=== PATIENT | female | born 1990 | race Caucasian/White ===

== ENCOUNTER 2020-10-17 07:54 | Emergency (ER) | payer MEDICAID, SELFPAY ==
[2020-10-17 08:06] VITALS: BP 118/81; PULSE 59; RESP 17; TEMP 36.1; O2SAT 100; BMI 24.9
--- NOTE | 2020-10-17 08:14 | W.ED.EYEPROB ---
HPI - Eye Problem General: Chief complaint: Eye Problems Stated complaint: PINK EYE (LEFT) COMPLICATIONS Time Seen by Provider: 10/17/20 08:07 Source: patient Mode of arrival: ambulatory Limitations: no limitations History of Present Illness: HPI Narrative: Patient is a 30-year-old female who presents to ED today with complaints of redness and drainage to her left eye that she has noticed over the past 2 to 3 days. She states boyfriend has similar symptoms. She has noticed mucus-like drainage from the eye throughout the day. She does not complain of pain or visual changes. No injury or trauma. No foreign body sensation. No headache. chief complaint: eye redness and other (discharge ) Onset (ago): day(s) Location: left eye Eye Symptoms: redness and discharge Place: home Mechanism: none Severity: mild Associated symptoms: Denies fever(s) Treatments Prior to Arrival: none Related Data: Patient tetanus UTD: Yes Review of Systems Const: Denies: fever(s), chills, body aches or fatigue Eyes: Reports: eye discharge and eye redness; Denies: change in vision, blurry vision, photophobia or seeing flashes ENMT: Denies: throat pain, odynophagia, ear or mastoid pain, nasal discharge or nasal congestion Physical Exam Const: COMMON NORMALS: no acute distress, average body habitus, patient oriented x3, no limitations, healthy appearing, alert and well nourished Eye: COMMON NORMALS: Equal, round and reactive pupils present and EOMs intact bilaterally GENERAL EYE: normal light reflex VISUAL ACUITY: Yes acuity normal VISUAL MARX: No peripheral vision loss PERIORBITAL: periorbital findings normal EYELID: eyelids normal CONJUNCTIVA: Yes conjunctival abnormal positive left conjunctival injection CORNEA: Yes corneas normal PUPIL: Yes Equal, round and reactive pupils present DIRECT OPHTHALMOSCOPY: Yes normal light reflex Neuro: COMMON NORMALS: patient oriented x3 SENSORIUM/ORIENTATION: Yes alert Course Vital Signs: Vital signs: Vital Signs Temperature 97.0 F L 10/17/20 08:06 Pulse Rate 59 L 10/17/20 08:06 Respiratory Rate 17 10/17/20 08:06 Blood Pressure 118/81 10/17/20 08:06 Pulse Oximetry 100 10/17/20 08:06 MDM - Eye Problem MDM Narrative: Medical decision making narrative: Patient does not complain of a headache. She has no visual changes. No foreign body sensation. She has a boyfriend with identical symptoms making bacterial conjunctivitis the most likely diagnosis. Patient will be placed on Polytrim ophthalmic drops. Recommend follow-up with PCP in 3 days if symptoms do not improve. Return to ED precautions given. Discharge Plan Discharge Patient Disposition: Home Clinical Impression: Acute conjunctivitis, left eye Qualifiers: Acute conjunctivitis type: bacterial Qualified Code(s): H10.32 - Unspecified acute conjunctivitis, left eye Condition: Stable Prescriptions: New Polytrim 10,000 unit- 1 mg/mL drops 1 drp ophthalmic (eye) QID 7 Days Qty: 10 RF: 0 Discharge Orders: Discharge ED (Routine); Ordered 10/17/20 Ordered By: Kimber Garner Patient Instructions: Conjunctivitis (ED) Activity Restrictions/Additional Instructions: As we discussed please follow-up with your primary care provider in approximately 3 days IF symptoms are not improving. You need to return to the ED for severe pain, visual changes, severe headache, or any other concerns you may have. Coding Level of Care Code ED Mobile Product Manager for Avelino Estrada
[2020-10-17 08:27] VITALS: BP 118/81; PULSE 73; O2SAT 100
== END 2020-10-17 08:28 | disposition home or self-care (01) ==
PROVIDERS: Emergency Provider Physician Assistant
DX: H10.32 Unspecified acute conjunctivitis, left eye (principal)
CPT/HCPCS: 99281

== ENCOUNTER 2020-11-08 10:22 | Outpatient (CLI) | payer MEDICAID, SELFPAY ==
--- NOTE | 2020-11-08 10:30 | CT_ITS ---
WS: [id number] CT HEAD TECHNIQUE: Noncontrast CT of the head obtained from the skullbase to the vertex. CLINICAL INFORMATION: WEAKNESS OF LEFT UPPER EXTREMITY COMPARISON: None. DLP: 992.[address] scans at [facility] use at least one of these dose optimization techniques: automated e xposure control; mA and/or kV adjustment per patient size (includes targeted exams where dose is matc hed to clinical indication); or iterative reconstruction. FINDINGS: No evidence of intracranial hemorrhage or mass effect. Ventricular system and basal cisterns are maza nt.No extra-axial fluid collections. No evidence of mass or mass effect. Normal kelly-white differenti ation. Paranasal sinuses and mastoid air cells are well aerated. .Normal visualized soft tissues. CT/CT head wo con* [id number] IMPRESSION: 1. No evidence of intracranial hemorrhage or mass effect. 2. Normal kelly-white differentiation. 3. No acute intracranial findings.
== END 2020-11-08 10:23 | disposition home or self-care (01) ==
PROVIDERS: Visit Provider Nurse Practitioner Family
DX: R29.898 Other symptoms and signs involving the musculoskeletal system (principal)
CPT/HCPCS: 70450

== ENCOUNTER → 2021-02-09 11:24 | Outpatient (BNVA) | payer MEDICAID, SELFPAY | PROVIDERS: Referring Provider Nurse Practitioner Family; Visit Provider Specialist | DX: R29.818 Other symptoms and signs involving the nervous system (principal); F17.200 Nicotine dependence, unspecified, uncomplicated | CPT/HCPCS: 99203 ==